=== PATIENT | male | born 1955 | race Caucasian/White ===

== ENCOUNTER 2016-10-07 15:02 | Emergency (ER) | payer BC ==
[~2016-10-07] VITALS: Ht 193 cm; Wt 111.1 kg
--- NOTE | 2016-10-07 15:58 | NUR ---
PLACED IN HALLWAY REPORT GIVEN TO GINA
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
[2016-10-07 16:00] VITALS: BP_SYST 145
--- NOTE | 2016-10-07 16:10 | NUR ---
ER at bedside examining patient.
--- NOTE | 2016-10-07 16:20 | NUR ---
Pt was takento CT in stable condition
--- NOTE | 2016-10-07 16:45 | NUR ---
Pt returned from CT in stable condition
--- NOTE | 2016-10-07 17:25 | NUR ---
Pt was complaining of pain / and Dr Herbert was made aware, medication is being put in.
--- NOTE | 2016-10-07 17:43 | NUR ---
Medication was given to pt and tolerated it well. No adverse reaction noted at this time.
[2016-10-07] MEDS ORDERED: ONDANSETRON HCL 4 MG/2 ML VIAL IM ONE (17:45)
[2016-10-07] MEDS ORDERED: HYDROmorphone 1 MG INJ. 1 MG/ML AMPUL IVP ONE ×2 (17:45)
[2016-10-07] MEDS ORDERED: HYDROmorphone 1 MG INJ. 1 MG/ML AMPUL IM ONE (17:45)
[2016-10-07] MEDS ORDERED: ONDANSETRON HCL 4 MG/2 ML VIAL IVP ONE (17:45)
[2016-10-07 18:03] VITALS: BP_SYST 130
--- NOTE | 2016-10-07 18:03 | NUR ---
Patient given written and verbal discharge instructions and verbalizes understanding. ER MD discussed with patient the results and treatment provided. Patient in stable condition. ID arm band removed. Rx of norco given. Patient educated on pain management and to follow up with PMD. Pain Scale 4. Dr Herbert is aware, pt was given pain medication here and a precription for home. Opportunity for questions provided and answered.
== END 2016-10-07 18:03 | disposition home or self-care (01) ==
LOC: SED 15:02
DX: S16.1XXA Strain of muscle, fascia and tendon at neck level, initial encounter (principal); S39.012A Strain of muscle, fascia and tendon of lower back, initial encounter; S46.911A Strain of unspecified muscle, fascia and tendon at shoulder and upper arm level, right arm, initial encounter; R51 Headache; Z90.89 Acquired absence of other organs; V49.9XXA Car occupant (driver) (passenger) injured in unspecified traffic accident, initial encounter; Y93.89 Activity, other specified; Y92.89 Other specified places as the place of occurrence of the external cause; Y99.8 Other external cause status
CPT/HCPCS: 72125; 72131; 96372; 99284; J1170; J2405